=== PATIENT | male | born 1990 | race Caucasian/White ===

== ENCOUNTER 2020-09-26 18:54 | Outpatient (REF) | payer OTHER, SELFPAY ==
[2020-09-26 19:33] LABS: Calculated LDL 128 mg/dL (<100); Cholesterol 173 mg/dL (<200); HDL Cholesterol 34 mg/dL (40-60); Triglyceride 58 mg/dL (<150)
== END 2020-09-26 18:55 | disposition home or self-care (01) ==
LOC: NCHCN 18:54
PROVIDERS: Visit Provider Family Medicine
DX: Z00.00 Encounter for general adult medical examination without abnormal findings (principal)
CPT/HCPCS: 80061